=== PATIENT | male | born 1960 | race Caucasian/White ===

== ENCOUNTER 2016-06-28 18:16 | Observation (INO) | payer OTHER ==
[~2016-06-28 18:16] MED LIST: CEPHALEXIN500 MG PO; CYMBALTA60 M1 PO; NORCO 5/325 TAB1 TAB PO
[2016-06-28] MEDS ORDERED: OMEPRAZOLE40 M2 PO (18:24)
[2016-06-28] MEDS ORDERED: PRILOSEC OTC20 M1 PO (18:31)
[2016-06-28 19:12] LABS: BASO % 0.4 % (0-2); EOS % 1.3 % (0-7); EOSINOPHIL ABSOLUTE COUNT 0.1 tho/cmm (0.0-0.7); HCT-HEMATOCRIT 40.7 % (36.0-53.5); HGB-HEMOGLOBIN 14.1 gm/dl (13.5-17.0); LYMPH % 21.7 % (20-45); LYMPH ABSOLUTE COUNT 2.2 tho/cmm (0.8-4.5); MCH (MEAN CORPUSCULAR HGB) 30.8 pg (28.0-32.0); MCHC MEAN CORPUSCULAR HGB CONC 34.6 % (32.0-36.0); MCV (MEAN CELL VOLUME) 88.9 fl (82.0-96.0); MEAN PLATELET VOLUME 10.4 cmc (9.4-12.4); MONO % 8.4 % (0-12); MONOCYTE ABSOLUTE COUNT 0.9 tho/cmm (0.0-1.2); NEUTROPHILS % 68.2 % (40-80); PLATELET COUNT 194 tho/cmm (150-450); RED BLOOD COUNT 4.58 mil/cmm (4.40-5.70); RED CELL DISTRIBUTION WIDTH 12.2 % (12.4-16.4); WHITE BLOOD COUNT 10.3 tho/cmm (4.0-10.0)
[2016-06-28 19:19] LABS: PROTHROMBIN TIME 11.3 SECONDS (9.0-13.6)
[2016-06-28 19:21] LABS: PARTIAL THROMBOPLASTIN TIME 31 SECONDS (22-38)
[2016-06-28 19:23] LABS: D-DIMER <215 ng/mlFEU (<500)
[2016-06-28 19:28] LABS: ALB/GLOB RATIO 1.2 (0.8-2.0); ALBUMIN 3.6 g/dl (3.5-5.0); ALKALINE PHOSPHATASE 59 U/L (33-138); ALT/SGPT 51 U/L (12-78); ANION GAP 9 mmol/L (0-20); AST/SGOT 27 U/L (10-40); BILIRUBIN,TOTAL 0.3 mg/dl (0.0-1.5); BLOOD UREA NITROGEN 18 mg/dl (6-24); CALCIUM 8.5 mg/dl (8.5-10.5); CARBON DIOXIDE-VENOUS 29 mmol/L (22-32); CHLORIDE 108 mmol/l (96-110); GLUCOSE 122 mg/dL (70-110); POTASSIUM 3.9 mmol/L (3.7-5.1); SODIUM 142 mmol/L (135-145); eGFR VALUE FOR BLACK >90 mL/Min
== END 2016-06-29 15:58 ==
LOC: EDMED 18:16 → EMR2 21:57 → CAR1 23:20
PROVIDERS: Family Medicine; Nurse Practitioner Family; ADMIT Internal Medicine Cardiovascular Disease
DX: I08.1 Rheumatic disorders of both mitral and tricuspid valves (principal); J93.9 Pneumothorax, unspecified; G47.33 Obstructive sleep apnea (adult) (pediatric); K21.9 Gastro-esophageal reflux disease without esophagitis; Z99.81 Dependence on supplemental oxygen; Z98.890 Other specified postprocedural states; Z90.49 Acquired absence of other specified parts of digestive tract; Z79.899 Other long term (current) drug therapy
CPT/HCPCS: C9113; G0378; J1885; Q9967